=== PATIENT | male | born 1940 ===

== ENCOUNTER 2018-10-01 10:58 | Outpatient (CLI) | payer OTHER ==
[~2018-10-01] VITALS: Ht 167.6 cm; Wt 80.3 kg
[~2018-10-01 10:58] MED LIST: GLIMEPIRIDE1 MG PO; HYZAAR 50-12.1 UDTAB PO; LIPITOR40 MG PO; PLAVIX75 MG PO; PREVACID30 MG/BLIS PO; TOPROL XL50 MG PO
== END 2018-10-01 11:15 | disposition home or self-care (01) ==
LOC: OFIC 805 10:58
DX: H65.113 Acute and subacute allergic otitis media (mucoid) (sanguinous) (serous), bilateral (principal); H60.8X3 Other otitis externa, bilateral; J30.89 Other allergic rhinitis; R43.0 Anosmia; H61.23 Impacted cerumen, bilateral

== ENCOUNTER 2018-10-08 11:13 | Outpatient (CLI) | payer OTHER | END 2018-10-08 11:30 | disposition home or self-care (01) | LOC: OFIC 805 11:13 | DX: R43.0 Anosmia (principal); H90.3 Sensorineural hearing loss, bilateral; H61.23 Impacted cerumen, bilateral ==

== ENCOUNTER 2019-01-07 11:36 | Outpatient (CLI) | payer OTHER ==
[~2019-01-07] VITALS: Ht 152.4 cm; Wt 79.4 kg
== END 2019-01-07 11:50 | disposition home or self-care (01) ==
LOC: OFIC 805 11:36
DX: J30.89 Other allergic rhinitis (principal); R43.0 Anosmia; H61.23 Impacted cerumen, bilateral; H90.3 Sensorineural hearing loss, bilateral

== ENCOUNTER 2019-04-05 12:17 | Outpatient (CLI) | payer OTHER ==
[~2019-04-05] VITALS: Ht 152.4 cm; Wt 80.3 kg
== END 2019-04-05 12:35 | disposition home or self-care (01) ==
LOC: OFIC 805 12:17
DX: R43.0 Anosmia (principal); J32.0 Chronic maxillary sinusitis; J34.9 Unspecified disorder of nose and nasal sinuses